=== PATIENT | male | born 1995 ===

== ENCOUNTER 2017-07-18 03:07 | Emergency (ER) | payer SELFPAY ==
[2017-07-18] MEDS ORDERED: DiphenhydrAMINE 50 mg/ml Inj ONE (03:12)
[2017-07-18] MEDS ORDERED: DiphenhydrAMINE 50 mg/ml Inj IVP STA (03:14)
[2017-07-18] MEDS ORDERED: Albuterol 0.083% Inhal Sol (2.5 mg/3 mL) UD IH STA (03:21)
[2017-07-18] MEDS ORDERED: Albuterol 0.083% Inhal Sol (2.5 mg/3 mL) UD ONE (03:24)
--- NOTE | 2017-07-18 04:00 | C.PDOC ---
History Of Present Illness 22 year old male presents to the ER with a complaint of feeling SOB and not feeling well after eating fish tonight. Denies difficulty swallowing or throat swelling. Time Seen by Provider: 07/18/17 03:14 Chief Complaint (Nursing): Allergic Reaction History Per: Patient History/Exam Limitations: no limitations Onset/Duration Of Symptoms: Hrs Current Symptoms Are (Timing): Still Present Possible Cause: Food Associated Symptoms: Dyspnea Home/EMS Treatment: None Severity: None Recent travel outside of the [place]: No Past Medical History Reviewed: Historical Data, Nursing Documentation, Vital Signs Vital Signs: Last Vital Signs Temp 98.0 F 07/18/17 03:08 Pulse 98 H 07/18/17 03:08 Resp 16 07/18/17 03:08 BP 135/82 07/18/17 03:08 Pulse Ox 100 07/18/17 04:09 Family History: States: Unknown Family Hx - Social History Hx Alcohol Use: Yes Hx Substance Use: No Review Of Systems Constitutional: Negative for: Fever, Chills ENT: Negative for: Mouth Swelling, Throat Swelling Cardiovascular: Negative for: Chest Pain, Palpitations Respiratory: Positive for: Shortness of Breath Gastrointestinal: Negative for: Nausea, Vomiting Physical Exam - Physical Exam Appears: Non-toxic, Other (Anxious) Skin: Normal Color, Warm, Dry, No Rash Head: Atraumatic, Normacephalic Eye(s): bilateral: Normal Inspection Oral Mucosa: Moist Tongue: Normal Appearing, No Swelling Lips: Normal Appearing, No Swelling Throat: Normal, No Other (Swelling) Neck: Normal, Supple Chest: Symmetrical, No Tenderness Cardiovascular: Rhythm Regular Respiratory: Normal Breath Sounds, No Accessory Muscle Use, No Rales, No Rhonchi , No Wheezing Gastrointestinal/Abdominal: Soft, No Tenderness Neurological/Psych: Oriented x3, Normal Speech ED Course And Treatment O2 Sat by Pulse Oximetry: 100 (room air) Pulse Ox Interpretation: Normal Progress Note: Pepcid, solumedrol, albuterol, benadryl, and pepcid administered. Disposition Counseled Patient/Family Regarding: Diagnosis - Disposition Referrals: [facility] [Outside] Disposition Time: 04:38 Condition: STABLE Prescriptions: DiphenhydrAMINE [Benadryl] 25 mg PO Q6 #14 cap Famotidine [Pepcid] 20 mg PO BID #14 tab Instructions: Food Allergy Forms: [facility] (Mongolian), Gen Discharge Inst Bruneian Print Language: YAKUT - POA Present On Arrival: None - Clinical Impression Clinical Impression: Allergy - Scribe Statement The provider has reviewed the documentation as recorded by the Scribe Dieter Palencia All medical record entries made by the Scribe were at my direction and personally dictated by me. I have reviewed the chart and agree that the record accurately reflects my personal performance of the history, physical exam, medical decision making, and the department course for this patient. I have also personally directed, reviewed, and agree with the discharge instructions and disposition.
[2017-07-18 04:55] VITALS: BP 120/80; PULSE 71; RESP 14; TEMP 98; O2SAT 99
== END 2017-07-18 04:55 | disposition home or self-care (01) ==
LOC: C.ER 03:07
DX: T78.40XA Allergy, unspecified, initial encounter (principal)
CPT/HCPCS: 96374; 96375; 99283; J1200; J2930